=== PATIENT | female | born 1985 | race Caucasian/White ===

== ENCOUNTER 2017-08-08 12:19 | Emergency (ER) | payer BC, OTHER ==
[2017-08-08 12:25] VITALS: BMI 23.4
[2017-08-08 12:26] VITALS: RESP 18
[2017-08-08] MEDS ORDERED: Sodium Chloride 0.9% 1,000 ML IV STA (13:54)
--- NOTE | 2017-08-08 14:39 | ED PDOC ---
HPI: Abdomen Time Seen by Provider: 08/08/17 13:03 Chief Complaint (Nursing): Abdominal Pain Chief Complaint (Provider): Bloody Stool History Per: Patient History/Exam Limitations: no limitations Onset/Duration Of Symptoms: Hrs (15 hours ago) Current Symptoms Are (Timing): Still Present Associated Symptoms: Diarrhea Additional Complaint(s): 32 yo female presents to the ED complaining of having 4 bloody bowel movements, onset of 15 hours ago. Patient reports of initially having diarrhea, but then began passing large, loose stool with blood. Of note, the amount of blood present in the stool decrease with each bowel movement. Patient states that she went to an urgent care center this morning, where she was prescribe Bactrim for a possible infection, and instructed to follow up with the ED for evaluation. She also notes that she was experiencing some abdominal pain that has now resolved, along with some low back pain. She denies any fevers, chills, urinary symptoms, sick contacts, or ingestion of any poorly kept/prepared food. Past Medical History Reviewed: Historical Data, Nursing Documentation, Vital Signs Vital Signs: Last Vital Signs Temp 97.8 F 08/08/17 12:26 Pulse 89 08/08/17 12:26 Resp 18 08/08/17 12:26 BP 120/79 08/08/17 12:26 Pulse Ox 100 08/08/17 14:45 - Medical History PMH: No Chronic Diseases - Surgical History Surgical History: No Surg Hx - Family History Family History: States: Unknown Family Hx - Social History Current smoker - smoking cessation education provided: No Ex-Smoker (has not smoked in the last 12 months): No Alcohol: None Drugs: Denies - Allergies Allergies/Adverse Reactions: Allergies Allergy/AdvReac Type Severity Reaction Status Date / Time No Known Allergies Allergy Verified 08/08/17 12:25 Review of Systems ROS Statement: Except As Marked, All Systems Reviewed And Found Negative Constitutional: Negative for: Fever, Chills Gastrointestinal: Positive for: Abdominal Pain (left side), Diarrhea, Hematochezia Musculoskeletal: Positive for: Back Pain (low) Physical Exam - Reviewed Nursing Documentation Reviewed: Yes Vital Signs Reviewed: Yes - Physical Exam Appears: Positive for: Well, Non-toxic, No Acute Distress Head Exam: Positive for: ATRAUMATIC, NORMAL INSPECTION, NORMOCEPHALIC Skin: Positive for: Normal Color, Warm, DRY Eye Exam: Positive for: EOMI, Normal appearance, PERRL ENT: Positive for: Normal ENT Inspection Neck: Positive for: Normal, Painless ROM Cardiovascular/Chest: Positive for: Regular Rate, Rhythm. Negative for: Murmur Respiratory: Positive for: Normal Breath Sounds. Negative for: Respiratory Distress Gastrointestinal/Abdominal: Positive for: Normal Exam, Soft, Tenderness (left- sided). Negative for: Distended, Guarding Back: Positive for: Normal Inspection Extremity: Positive for: Normal ROM. Negative for: Pedal Edema, Deformity Neurologic/Psych: Positive for: Alert, Oriented. Negative for: Motor/Sensory Deficits - Laboratory Results Result Diagrams: 08/08/17 15:05 - ECG O2 Sat by Pulse Oximetry: 100 (RA) Pulse Ox Interpretation: Normal Medical Decision Making Medical Decision Making: Time: --13:53 Impression: --Gastroenteritis Plan: --Labs --Ed Urine Dip -- Test --IV fluids --Erythrocyte Sedimentation Rate Reassess --15:00 Patient to be signed out to Dr. Blackman pending ED workup and final disposition. Scribe Attestation: Documented by Ej Covarrubias acting as a scribe for Sarah King MD. Provider Attestation: All medical record entries made by the Scribe were at my direction and personally dictated by me. I have reviewed the chart and agree that the record accurately reflects my personal performance of the history, physical exam, medical decision making, and the department course for this patient. I have also personally directed, reviewed, and agree with the discharge instructions and disposition Disposition - Clinical Impression Clinical Impression: Bloody stool - Patient ED Disposition Is Patient to be Admitted: Transfer of Care Discussed With : Nellie Blackman Doctor Will See Patient In The: ED - Disposition Disposition: Transfer of Care Disposition Time: 15:00 Condition: FAIR Forms: [employer] ([place]) Patient Signed Over To: Nellie Blackman
[2017-08-08 15:13] LABS: BASO # 0.1 K/uL (0.0-0.2); BASO % 0.5 % (0.0-2.0); EOS # 0.1 K/uL (0.0-0.7); EOS % 0.6 % (0.0-4.0); HEMOGLOBIN 12.3 g/dL (12.0-16.0); LYMPH # 2.3 K/uL (1.0-4.3); LYMPH % 17.6 % (20.0-40.0); MEAN CELL VOLUME 91.7 fl (81.0-99.0); MEAN CORPUSCULAR HEMOGLOBIN 30.2 pg (27.0-31.0); MEAN CORPUSCULAR HGB CONC 32.9 g/dL (33.0-37.0); MEAN PLATELET VOLUME 8.3 fl (7.2-11.7); MONO % 7.6 % (0.0-10.0); NEUT # 9.6 K/uL (1.8-7.0); NEUT % 73.7 % (50.0-75.0); RBC 4.08 Mil/uL (3.80-5.20); RED CELL DISTRIBUTION WIDTH 12.5 % (11.5-14.5); WHITE BLOOD COUNT 13.1 K/uL (4.8-10.8)
--- NOTE | 2017-08-08 15:44 | ED PDOC ---
- Laboratory Results Result Diagrams: 08/08/17 15:05 08/08/17 17:39 - ECG O2 Sat by Pulse Oximetry: 100 (RA) Medical Decision Making Medical Decision Making: Time: --15:00 Reassess --Patient signed out to the provider by Dr. King pending ED workup an final disposition. Scribe Attestation: Documented by Ej Covarrubias acting as a scribe for Nellie Blackman MD. Provider Attestation: All medical record entries made by the Scribe were at my direction and personally dictated by me. I have reviewed the chart and agree that the record accurately reflects my personal performance of the history, physical exam, medical decision making, and the department course for this patient. I have also personally directed, reviewed, and agree with the discharge instructions and disposition Disposition Counseled Patient/Family Regarding: Studies Performed, Diagnosis, Need For Followup, Rx Given - Clinical Impression Clinical Impression: Bloody stool, Hypokalemia - POA Present On Arrival: None - Disposition Referrals: Maria Teresa HENRY,MD Cady [Medical Doctor] - Disposition: Routine/Home Disposition Time: 18:28 Condition: GOOD Additional Instructions: DRINK PLENTY OF HYDRATING FLUIDS AND REST TAKE ANTIBIOTICS PRESCRIBED AND LOMOTIL NEEDED FOR DIARRHEA INCREASE POTASSIUM RICH AND FIBROUS FOODS YOU SHOULD FOLLOW UP WITH YOUR DOCTOR IN 2-3 DAYS TO SEE HOW YOU ARE DOING. YOU SHOULD FOLLOW UP WITH A STAFF READINESS OFFICER IN 1-2 WEEKS FOR FURTHER EVALUATION. Prescriptions: Atropine/Diphenoxylate [Lonox 0.025 MG-2.5 MG] 2 tab PO QID PRN #30 tab PRN Reason: Diarrhea Instructions: Rectal Bleeding (ED), Hypokalemia (ED), Acute Diarrhea (ED) Forms: [employer] ([place]), [facility] ED School/Work Excuse
[2017-08-08 18:17] LABS: ALBUMIN 3.5 g/dL (3.5-5.0); ALT/SGPT 17 U/L (9-52); AST/SGOT 18 U/L (14-36); BLOOD UREA NITROGEN 8 mg/dl (7-17); CALCIUM 8.3 mg/dL (8.4-10.2); GFR AFRICAN-AMERICAN > 60; GFR NON-AFRICAN AMERICAN > 60
[2017-08-08] MEDS ORDERED: K-Lyte 25meq EF Tab PO ONE ×2 (18:23→18:40)
[2017-08-08 18:26] VITALS: BP 111/69; PULSE 70; TEMP 97.7
[2017-08-08 18:30] VITALS: O2SAT 100
== END 2017-08-08 18:44 | disposition home or self-care (01) ==
LOC: H.ER 12:19
DX: K62.5 Hemorrhage of anus and rectum (principal); E87.6 Hypokalemia; R19.7 Diarrhea, unspecified; K52.9 Noninfective gastroenteritis and colitis, unspecified
CPT/HCPCS: 80053; 81025; 85025; 85651; 99282; J7040